=== PATIENT | female | born 1935 | race Caucasian/White ===

== ENCOUNTER → 2016-11-14 | Outpatient (CLI) | payer MEDICARE, OTHER ==
[~2016-11-14] MED LIST: ASPI-730 PO; ATEN-36 PO; CALC600T12 PO; DULO30CA23 PO; FISH1CAP29 PO; FLAX100029 PO; GARL1CAP12 PO; IOHEXOL 300 MG/ML 100ml INJECTION ONE; LEVO25TA49 PO; NITR12SP5 TL; NORMAL SALINE 100 ML ONE; OMEP20CA81 PO; SALINE FLUSH 10ml SYRINGE ONE; UBID10CA8 PO; VITA-286 PO
--- NOTE | 2016-11-14 15:43 | DI ---
Indication: ITS.REASON: N28.1 CYST OF KIDNEY PROCEDURE: CT RENAL W/WO CONTRAST: Encounter: Initial Comparison: CT abdomen dated April 26, 2014 Technique: Axial CT images were performed through the abdomen and pelvis before and after the administration of intravenous contrast. Delayed postcontrast images were also performed. Coronal and sagittal 2-dimensional reformats. Automated Exposure Control and Iterative Reconstruction dose reducing techniques were utilized. Contrast: Omnipaque 300 100 mL Findings: The lung bases are clear apart from a calcified granuloma in the left lower lobe. Noncontrast images show no evidence of renal stone disease. There is a large partially calcified cyst arising from the lower pole of the right kidney measuring up to 7.3 x 5.8 cm on coronal image #51. No ureteral stones identified. Postcontrast images show normal enhancement of the liver without bile duct dilatation or enhancing mass. The gallbladder shows multiple small gallstones within it. The spleen, pancreas and adrenal glands are normal. Subcentimeter low-attenuation foci in the left kidney are too small to definitively characterize. No enhancing left renal masses or hydronephrosis. The large lower pole partially calcified septated cyst in the right kidney shows no evidence of postcontrast enhancement. There is also an oval cyst in the posterior aspect of the right kidney seen on axial image #27 measuring 2 cm in diameter which is slightly smaller than the comparison exam. No enhancing renal masses. Calcified and noncalcified plaque in the abdominal aorta and its major branches. 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 Ectasia of the right common iliac artery at 1.6 cm in diameter. Left common iliac artery ectasia also a 1.3 cm diameter. No abdominal or pelvic lymphadenopathy. 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 This area is not included comparison. Bladder is grossly normal. Uterus contains a calcified fibroid. Mild sigmoid diverticulosis without evidence of acute diverticulitis. No evidence of a bowel obstruction. Bone windows show degenerative changes in the spine. Delayed postcontrast images show normal excretion of contrast by both renal collecting systems without filling defect or mass. The ureters are normal in course and caliber. Partially opacified urinary bladder is normal. Impression: 1. Stable benign cysts in the right kidney. 2. 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 .
== END ==
LOC: IMA 14:17
PROVIDERS: ATTEND Internal Medicine
DX: N28.1 Cyst of kidney, acquired (principal); I77.811 Abdominal aortic ectasia; I77.89 Other specified disorders of arteries and arterioles
CPT/HCPCS: 74178; J7050; Q9967